=== PATIENT | female | born 1945 | race Caucasian/White ===

== ENCOUNTER 2018-12-19 06:58 | Day surgery (SDC) | payer MEDICARE ==
[~2018-12-19 06:58] MED LIST: CEFAZOLIN 2 Gram 2 GM/50 ML BAG IVPB ONE
[2018-12-19] MEDS ORDERED: KETOROLAC 30 MG/ML VIAL IVP ONE (06:59)
[2018-12-19] MEDS ORDERED: PROPOFOL 10 MG/ML VIAL IV ONE (06:59)
[2018-12-19] MEDS ORDERED: BUPIVACAINE 0.5% (5MG/ML) PF 30ML VIAL IVP ONE (06:59)
[2018-12-19] MEDS ORDERED: DEXAMETHASONE 4 MG/ML 1ML VIAL IVP ONE (06:59)
[2018-12-19] MEDS ORDERED: BUPIVACAINE LIPOSOME/PF 133MG/10ML VIAL IV ONE (06:59)
[2018-12-19] MEDS ORDERED: MIDAZOLAM HCL 2MG/2ML VIAL IV ONE (06:59)
[2018-12-19] MEDS ORDERED: RINGERS SOLUTION,LACTATED 1,000 ML IV ONE (08:00)
[2018-12-19] MEDS ORDERED: BUPIVACAINE 0.5% W/EPI MPF 30 ML VIAL SQ ONE (09:48)
[2018-12-19] MEDS ORDERED: MORPHINE SULFATE PF 10MG/10ML *10ML VIAL IU ONE (09:57)
--- NOTE | 2018-12-20 07:51 | Operative Note ---
DATE OF SURGERY: 12/19/2018 PREOPERATIVE DIAGNOSIS: Right shoulder impingement, severe, question tear of the rotator cuff. POSTOPERATIVE DIAGNOSES: 1. 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 2. Diffuse synovitis, right shoulder. 3. Profound right shoulder external impingement. 3. Arthrosis right distal clavicle. OPERATION: 1. Repair of a chronically torn rotator cuff tendon. 2. Right shoulder arthroscopy with interarticular debridement. 3. Right shoulder open acromioplasty, CA ligament resection, subacromial bursectomy. 4. Right shoulder distal clavicle resection. STAFF SURGEON: Clem Gao MD TAKE DOWN INSPECTOR: Mrs. Croin Deleon ANESTHESIA: Block with sedation. PREPARATION: Chloraprep. INDIVIDUAL CONSIDERATIONS: None. PROCEDURE: The patient was taken to the operating room, placed supine on the operating room table. She had a successful induction with an interscalene block and was sedated and placed in a semi-seated beach chair position. Her right arm and shoulder were prepped and draped in the usual fashion. Examination under anesthesia showed no instability. The patient had a posterior portal identified for arthroscopy. Skin was infiltrated with 0.5% Marcaine with epinephrine prior. An 18-gauge spinal needle was easily placed in the joint, and the joint was inflated with normal saline with a 30-mL syringe. A blunt-tipped trocar for the scope was easily placed in the joint. The joint was inflated with normal saline. An anterior accessory portal was then made just inferior to the intact long head of the biceps tendon in a retrograde fashion with a Wissinger yen, and the joint was irrigated out. The patient had an obvious large tear of the rotator cuff and the supraspinatus. Long head was intact. Diffuse synovitis present. The glenohumeral joint was relatively normal. A shaver was introduced and diffuse synovitis was debrided out. The joint was irrigated out and portals were closed with lorie. The patient had an anterior approach to the subacromial space and distal clavicle. Sharp dissection carried down through skin and subcutaneous tissues. Small veins were coagulated with a Bovie. An anterior deltoid interval was developed. Care was taken not to split the deltoid more than about 4 cm distal to the anterior tip of the acromion to prevent injury to the axillary nerve. Once in the subacromial space, there was a large anne of fluid consistent with a tear. The deltoid was then taken subperiosteally off the anterior aspect of the acromion, over the top of the intact CA ligament, and off the anterior aspect of a highly degenerated distal clavicle. CA ligament was resected with a Bovie. Distal clavicle was resected with an oscillating saw taking just under 1 cm. The patient had a downsloping acromion with large anterior spurs. An anterior acromioplasty was performed taking about a centimeter tapering towards posteromedially to include the spurs at the AC joint. The undersurface was then smoothed. The patient had a very thick bursa, and this was all debrided out. I now had a good look at the rotator cuff. Basically, all the supraspinatus and portions of the infraspinatus were completely torn off and retracted. I was able to mobilize it except for a small area centrally where I basically did a small V to Y advancement. I freshened up the end of the tendon, burred a large trough in the area of the tuberosity where it pulls off, put multiple retention sutures of #1 Ethibond and then franc those into the trough through holes sutured and pulled down distally. This affected a near anatomic repair. I put the shoulder through a full range of motion to ensure no further impingement. After irrigation, the deltoid was reattached to the remaining acromion with multiple interrupted #2 Vicryl going directly through the bony acromion. The periosteal cuff of the distal clavicle was closed with running #2 Vicryl. Anterior deltoid interval was closed with running #1 Vicryl. Subcu was closed with 2-0 plus Vicryl in layers and skin was closed with running 3-0 quill. A sterile bulky compressive dressing was applied. Prior to this, I did inject about 10 mL of 0.5% Marcaine with epinephrine along with 10 mg of morphine into the subacromial space. A sterile bulky compression dressing was applied. The patient tolerated the procedure well. Needle and sponge counts were correct. Estimated blood loss was minimal. She was taken back to recovery in good condition. There were no complications. [facility]
== END 2018-12-19 11:50 | disposition home or self-care (01) ==
LOC: SUR 06:58
PROVIDERS: ATTEND Orthopaedic Surgery
DX: M75.101 Unspecified rotator cuff tear or rupture of right shoulder, not specified as traumatic (principal); M65.811 Other synovitis and tenosynovitis, right shoulder; M19.011 Primary osteoarthritis, right shoulder; E11.9 Type 2 diabetes mellitus without complications; Z79.4 Long term (current) use of insulin; I48.91 Unspecified atrial fibrillation; Z79.01 Long term (current) use of anticoagulants; E78.00 Pure hypercholesterolemia, unspecified; J45.909 Unspecified asthma, uncomplicated; Z95.1 Presence of aortocoronary bypass graft; Z95.0 Presence of cardiac pacemaker
CPT/HCPCS: 29822; 23412; 23130; 23120; 01630; 64415; 82948; 36416; J1885; J0690; C9290; J7120